=== PATIENT | male | born 2000 | race Caucasian/White ===

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

== ENCOUNTER 2024-01-29 13:36 | Emergency (ER) | payer BC, SELFPAY ==
--- NOTE | 2024-01-29 15:33 | RAD REPORT ---
EXAM DESCRIPTION: US - Extremity Venous Uni Ltd - 01/29/2024 2:22 pm CLINICAL HISTORY: Pain, swelling COMPARISON: None. TECHNIQUE: Real-time sonographic evaluation of the right lower extremity deep venous system was perf ormed. FINDINGS: Normal compressibility, flow augmentation, phasic flow and spontaneous flow is identified in the right lower extremity deep venous system. No intraluminal filling defects seen. Subcutaneous adipose tissue shows some increased echogenicity in the area of concern along the right foot, may reflect mild edema. No appreciable fluid collections. Nonspecific right groin small lymph n odes, with mildly prominent cortex. IMPRESSION: No DVT in the right lower extremity. Right foot subcutaneous edema in the area of concern. Mildly prominent right groin lymph nodes, could be reactive/inflammatory.
--- NOTE | 2024-01-29 16:53 | RAD REPORT ---
EXAM DESCRIPTION: RAD - Foot Right 3 View - 01/29/2024 2:58 pm CLINICAL HISTORY: Pain;Swelling COMPARISON: No comparisons TECHNIQUE: Right foot, 3 views. FINDINGS: No fracture, dislocation or periosteal reaction. No air or foreign body in the soft tissues. IMPRESSION: Negative right foot examination.
--- NOTE | 2024-01-29 16:54 | ER ---
Nurse's Notes [facility] Name: Beto Lobo Age: 23 yrs Sex: Male : 2000 Arrival Date: 01/29/2024 Time: 13:36 Bed IW1 Private MD: Diagnosis: Cellulitis of right foot Presentation: 01/28 13:48 Chief complaint: Patient states: right foot pain started 2 weeks ago, no injury, now is dd2 swollen and bruised on top of foot. Coronavirus screen: At this time, the client does not indicate any symptoms associated with coronavirus-19. Ebola Screen: No symptoms or risks identified at this time. Initial Sepsis Screen: Does the patient meet any 2 criteria? No. Patient's initial sepsis screen is negative. Does the patient have a suspected source of infection? No. Patient's initial sepsis screen is negative. Risk Assessment: Do you want to hurt yourself or someone else? Patient reports no desire to harm self or others. Onset of symptoms is unknown. 13:48 Method Of Arrival: Wheelchair dd2 13:48 Acuity: CHASE 3 dd2 Triage Assessment: 13:49 General: Appears in no apparent distress. Behavior is calm, cooperative, appropriate dd2 for age. Pain: Complains of pain in dorsum of right foot. Historical: - Allergies: 13:49 No Known Allergies; dd2 - Home Meds: 13:49 None [Active]; dd2 - PMHx: 13:49 None; dd2 - PSHx: 13:49 None; dd2 - Immunization history:: Adult Immunizations up to date. - Infectious Disease History:: Denies. - Social history:: Smoking status: Patient denies any tobacco usage or history of. Screenin:56 [facility] ED Fall Risk Assessment (Adult) History of falling in the last 3 months, dd2 including since admission No falls in past 3 months (0 pts) Confusion or Disorientation No (0 pts) Intoxicated or Sedated No (0 pts) Impaired Gait No (0 pts) Mobility Assist Device Used No (0 pt) Altered Elimination No (0 pt) Score/Fall Risk Level 0 - 2 = Low Risk Oriented to surroundings, Maintained a safe environment, Hourly rounding (assess needs \T\ fall precautionary measures) done. Abuse screen: Denies threats or abuse. Nutritional screening: No deficits noted. Tuberculosis screening: No symptoms or risk factors identified. Assessment: 16:56 Musculoskeletal: Reports pain in right foot and dorsum of right foot. dd2 Vital Signs: 13:48 BP 127 / 76; Pulse 67; Resp 16; Temp 97.4; Pulse Ox 100% ; dd2 16:56 BP 122 / 71; Pulse 69; Resp 15; Temp 97.8; Pulse Ox 100% ; dd2 ED Course: 13:38 Patient arrived in ED. ra3 13:42 Shaniqua Maki PA-C is PHCP. sb4 13:42 Daljit Kilpatrick DO is Attending Physician. sb4 13:49 Triage completed. dd2 13:49 Arm band placed on right wrist. Patient placed in waiting room, Patient notified of dd2 wait time. 14:24 Extremity Venous Uni Ltd US In Process Unspecified. EDMS 14:59 Foot Right 3 View XRAY In Process Unspecified. EDMS 16:56 Patient has correct armband on for positive identification. Provided Education on: dd2 procedures, medicaton. 16:56 No provider procedures requiring assistance completed. Patient did not have IV access dd2 during this emergency room visit. Administered Medications: No medications were administered Medication: 16:56 VIS not applicable for this client. dd2 Outcome: 16:53 Discharge ordered by MD. sb4 16:56 Discharged to home via wheelchair, dd2 16:56 Condition: stable 16:56 Discharge instructions given to patient, Instructed on discharge instructions, follow up and referral plans. medication usage, Demonstrated understanding of instructions, follow-up care, medications, Prescriptions given X 1, 16:59 Patient left the ED. dd2 Signatures: Dispatcher [employer] EDMS Shaniqua Maki PA-C PA-C sb4 Sarah Batista ra3 JO LYMAN, RN RN dd2
--- NOTE | 2024-01-29 16:54 | EDPHYS ---
Physician Documentation [facility] Name: Beto Lobo Age: 23 yrs Sex: Male : 2000 Arrival Date: 01/29/2024 Time: 13:36 Bed IW1 Private MD: ED Physician Daljit Kilpatrick HPI: 01/28 14:11 This 23 yrs old Male presents to ER via Wheelchair with complaints of Foot Pain. sb4 14:11 The patient presents with pain, swelling, tenderness. The complaints affect the dorsum sb4 of right foot. Context: resulted from an unknown cause, Mechanism of Injury: Unknown the patient can fully bear weight, the patient is able to ambulate. right foot swelling started 1 week ago. no known injury or trauma to the area. has been icing it and elevating it which has been helping. today, bruising developed. Historical: - Allergies: 13:49 No Known Allergies; dd2 - Home Meds: 13:49 None [Active]; dd2 - PMHx: 13:49 None; dd2 - PSHx: 13:49 None; dd2 - Immunization history:: Adult Immunizations up to date. - Infectious Disease History:: Denies. - Social history:: Smoking status: Patient denies any tobacco usage or history of. ROS: 14:13 MS/extremity: Positive for ecchymosis, erythema, pain, swelling, tenderness, of the sb4 dorsum of right foot, 14:13 All other systems are negative, 16:53 Constitutional: Negative for fever, chills, and weight loss, sb4 Exam: 16:41 Constitutional: This is a well developed, well nourished patient who is awake, alert, sb4 and in no acute distress. Head/Face: Normocephalic, atraumatic. Eyes: Extra-ocular motions intact. Periorbital areas with no swelling, redness, or edema. ENT: Mucous membranes moist. 16:41 Skin: cellulitis, that is moderate, well demarcated, on the dorsum of right foot, Vital Signs: 13:48 BP 127 / 76; Pulse 67; Resp 16; Temp 97.4; Pulse Ox 100% ; dd2 16:56 BP 122 / 71; Pulse 69; Resp 15; Temp 97.8; Pulse Ox 100% ; dd2 MDM: 13:57 Patient medically screened. sb4 16:41 Data reviewed: vital signs, nurses notes, radiologic studies, and as a result, I will sb4 discharge patient. Counseling: I had a detailed discussion with the patient and/or guardian regarding the historical points, exam findings, and any diagnostic results supporting the discharge/admit diagnosis, radiology results, to return to the emergency department if symptoms worsen or persist or if there are any questions or concerns that arise at home. 01/28 13:56 Order name: Foot Right 3 View XRAY; Complete Time: 16:53 sb4 01/28 13:56 Order name: Extremity Venous Uni Ltd US; Complete Time: 15:34 sb4 Administered Medications: No medications were administered Disposition: 14:50 I was immediately available on-site in the Emergency Department for consultation in the ms3 care of the patient. Disposition Summary: 01/29/24 16:53 Discharge Ordered Notes: Location: Home sb4 Problem: new sb4 Symptoms: are unchanged sb4 Condition: Stable sb4 Diagnosis - Cellulitis of right foot sb4 Followup: sb4 - With: Emergency Department - When: As needed - Reason: Fever > 102 F, Worsening of condition Discharge Instructions: - Discharge Summary Sheet sb4 - Cellulitis, Adult, [id number] sb4 Forms: - Antibiotic Education sb4 - Patient Portal Instructions sb4 - Leadership Thank You Letter sb4 Prescriptions: - Bactrim DS 800-160 mg Oral Tablet - take 1 tablet ORAL route every 12 hours for 10 days; 20 tablet; Refills: 0, sb4 Product Selection Permitted Signatures: Dispatcher [employer] EDMS Daljit Kilpatrick DO DO ms3 Shaniqua Maki PA-C PA-C sb4 JO LYMAN RN RN dd2 Corrections: (The following items were deleted from the chart) 13:56 Extremity Venous Uni Ltd+[email or web address] ordered. EDMS EDMS
[2024-01-29 17:04] VITALS: O2SAT 100
[2024-01-29 17:05] VITALS: BP 122/71; TEMP 97.8
== END 2024-01-29 16:59 | disposition home or self-care (01) ==
LOC: ER 13:36
DX: L03.115 Cellulitis of right lower limb (principal)
CPT/HCPCS: 93971